=== PATIENT | female | born 1970 | race Caucasian/White ===

== ENCOUNTER 2025-07-06 22:00 | Emergency (ER) | payer BC ==
--- OUTSIDE RECORDS SUMMARY | 2025-07-06 22:03 | XMS REPORT | Continuity of Care Document ---
Author Name Unknown Address [address] [place] [address] [facility] Address [address] [place] [address] Care Team Providers Care Resolution Specialist Name Role Phone GUILLERMO CATALAN Primary Care Physician Unavailab DARLENE Thomas Attending Clinician Unavailable Darlene Diana NP Attending Clinician [phone] Doctor Unassigned, [place] Attending Clinician U ELSA Hackett Attending Clinician UnavailElsa Melendrez DO Attending Clinician [phone] Prerna Greene Attending Clinician [phone] PRERNA PADRON Attending Clinician Unavailable Shankar Hilton Attending Clinician [phone] Roland Saunders MD Attending Clinician [phone] ELSA ROCA Admitting Clinician Unavailab pabon Payers Payer Name Policy Type Policy Number Effective Date Expirati on Date Source [facility] [id number] 2017 00:00:00 Problems Condition Name Condition Details Condition Category Status Onset Date Resolution Date Last Treatment Date Treating Clinician Comments Source Vomiting and diarrhea Vomiting and diarrhea Disease Active 04-09 00:00: 00 [facility] GERD (gastroeso phageal reflux disease) GERD (gastroeso phageal reflux disease) Disease Active 06-05 00:00: 00 [facility] Hypothyroi dism Hypothyroi dism Disease Active 06-05 00:00: 00 [facility] Allergies, Adverse Reactions, Alerts Allergy Name Allergy Type Status Severity Reaction(s) Onset Date Inactive Date Treating Clinician Comments Source Codeine Propensi ty to adverse reaction s Active Nausea and/or Vomiting 06-05 00:00: 00 [facility] CODEINE DRUG INGREDI Active N/V 06-05 00:00: 00 [facility] Social History Social Habit Start Date Stop Date Quantity Comments Source Exposure to SARS-CoV-2 (event) 2022-01-25 00:00:00 2022-02-04 12:50:00 Not sure [facility] Alcohol intake 2021-11-15 00:00:00 2021-11-15 00:00:00 Current non-drinker of alcohol (finding) [facility] Tobacco use and exposure 2021-04-10 00:00:00 2021-04-10 00:00:00 Never used [facility] Sex Assigned At 1970 00:00:00 1970 00:00:00 [facility] Smoking Status Start Date Stop Date Source Never smoker [facility] Medications Ordered Medication Name Filled Medication Name Start Date Stop Date Current Medication? Ordering Clinician Indication Dosage Frequency Signature (SIG) Comments Components Source FENTanyl PF (SUBLIMAZE (PF)) injection 50 mcg 11-15 20:30: 00 11-15 19:26 :00 No 50ug 50 mcg, Intramuscu lar, ONCE, 1 dose, On Sun11/15/21 at 1430, Routine [facility] cephALEXin (KEFLEX) 500 mg capsule 2020-10-16 00:00: 00 08-27 05:59 :00 No [id number] 500mg Take 1 capsule by mouth 4 (four) times daily for 10 days. [facility] amoxicillin -clavulanat e (AUGMENTIN) 875-125 mg per tablet 1 tablet 04-11 13:00: 00 Yes 1{tbl} 1 tablet, Oral, Q12H, First dose on 04/11/21 at 0800, Until Discontinu ed, Routine
Reason for Anti-Infec tive: Documented Infection< br>Documen ambrose Infection Site: HEENT
D uration of Therapy: 7 days [facility] amoxicillin -clavulanat e (AUGMENTIN) 875-125 mg per tablet 1 tablet 04-11 00:45: 00 04-11 00:05 :00 No 1{tbl} 1 tablet, Oral, ONCE, 1 dose, 04/10/21 at 1945, Routine
Reason for Anti-Infec tive: Documented Infection< br>Documen ambrose Infection Site: HEENT
D uration of Therapy: 7 days [facility] albuterol (VENTOLIN) inhaler 2 Puff 04-11 00:30: 00 04-11 00:05 :00 No 2{puff} 2 Puff, Inhalation , ONCE, 1 dose, 04/10/21 at 1930, ANJEL [facility] amoxicillin -clavulanat e 875-125 mg per tablet 04-10 00:00: 00 Yes [id number] 1{tbl} Take 1 tablet by mouth every 12 (twelve) hours. [facility] furosemide 20 mg tablet 2018-10 00:00: 00 Yes [id number] 20mg Take 1 tablet by mouth daily. [facility] erythromyci n 5 mg/gram (0.5 %) ophthalmic ointment 2018-10 00:00: 00 Yes [id number] .5[in_u s] Place 0.5 Inches in left eye 4 (four) times daily. Continue until you follow up with eye doctor. [facility] furosemide 20 mg tablet 05-15 00:00: 00 Yes [id number] 40mg Take 2 tablets by mouth every morning. [facility] clindamycin 300 mg capsule 05-15 00:00: 00 05-26 04:59 :00 No [id number] 300mg Take 1 capsule by mouth 4 (four) times daily for 10 days. [facility] diclofenac 75 mg EC tablet 04-14 00:00: 00 Yes [id number] 75mg Take 1 tablet by mouth 2 (two) times daily with meals. [facility] phenazopyri dine 200 mg tablet 04-28 00:00: 00 Yes 200mg Take 1 tablet by mouth 3 (three) times daily. [facility] oxaprozin (DAYPRO) 600 mg tablet 05-22 00:00: 00 Yes [facility] omeprazole (PRILOSEC) 40 mg capsule 05-17 00:00: 00 Yes [facility] levothyroxi ne (SYNTHROID) 100 mcg tablet 03-19 00:00: 00 Yes [facility] Vital Signs Vital Name Observation Time Observation Value Comments S ource Systolic blood pressure 2022-02-04 17:52:00 148 mm[Hg] [facility] Diastolic blood pressure 2022-02-04 17:52:00 97 mm[Hg] [facility] Heart rate 2022-02-04 17:52:00 78 /min [facility] Body temperature 2022-02-04 17:52:00 35.78 Daysi [facility] Respiratory rate 2022-02-04 17:52:00 14 /min [facility] Body height 2022-02-04 17:52:00 160 cm [facility] Body weight 2022-02-04 17:52:00 122.471 kg [facility] BMI 2022-02-04 17:52:00 47.83 kg/m2 [facility] Oxygen saturation in Arterial blood by Pulse oximetry 2022-02-04 17:52:00 98 /min [facility] Systolic blood pressure 2021-11-15 21:00:00 130 mm[Hg] [facility] Diastolic blood pressure 2021-11-15 21:00:00 85 mm[Hg] [facility] Heart rate 2021-11-15 21:00:00 83 /min [facility] Body temperature 2021-11-15 21:00:00 36.28 Daysi [facility] Respiratory rate 2021-11-15 21:00:00 18 /min [facility] Oxygen saturation in Arterial blood by Pulse oximetry 2021-11-15 21:00:00 94 /min [facility] Body height 2021-11-15 19:12:06 160 cm [facility] Body weight 2021-11-15 19:12:06 122.471 kg [facility] BMI 2021-11-15 19:12:06 47.83 kg/m2 [facility] Systolic blood pressure 2021-08-17 00:27:00 149 mm[Hg] [facility] Diastolic blood pressure 2021-08-17 00:27:00 102 mm[Hg] [facility] Heart rate 2021-08-17 00:27:00 77 /min Un[facility] Body temperature 2021-08-17 00:27:00 36.67 Daysi [facility] Respiratory rate 2021-08-17 00:27:00 18 /min [facility] Body weight 2021-08-17 00:27:00 122.471 kg [facility] BMI 2021-08-17 00:27:00 47.83 kg/m2 [facility] Oxygen saturation in Arterial blood by Pulse oximetry 2021-08-17 00:27:00 98 /min [facility] Systolic blood pressure 2021-04-10 21:24:00 166 mm[Hg] [facility] Diastolic blood pressure 2021-04-10 21:24:00 88 mm[Hg] [facility] Heart rate 2021-04-10 21:24:00 85 /min Unive [facility] Body temperature 2021-04-10 21:24:00 37.17 Dayis [facility] Respiratory rate 2021-04-10 21:24:00 18 /min [facility] Body height 2021-04-10 21:24:00 160 cm [facility] Body weight 2021-04-10 21:24:00 123.378 kg [facility] BMI 2021-04-10 21:24:00 48.18 kg/m2 [facility] Oxygen saturation in Arterial blood by Pulse oximetry 2021-04-10 21:24:00 100 /min [facility] Systolic blood pressure 2019-05-15 18:22:00 139 mm[Hg] [facility] Diastolic blood pressure 2019-05-15 18:22:00 80 mm[Hg] [facility] Heart rate 2019-05-15 18:22:00 93 /min Unive [facility] Body temperature 2019-05-15 18:22:00 36.94 Daysi [facility] Respiratory rate 2019-05-15 18:22:00 16 /min [facility] Body height 2019-05-15 18:22:00 177.8 cm [facility] Body weight 2019-05-15 18:22:00 117.935 kg [facility] BMI 2019-05-15 18:22:00 37.31 kg/m2 [facility] Oxygen saturation in Arterial blood by Pulse oximetry 2019-05-15 18:22:00 97 /min [facility] Systolic blood pressure 2019-05-15 18:22:00 139 mm[Hg] [facility] Diastolic blood pressure 2019-05-15 18:22:00 80 mm[Hg] [facility] Heart rate 2019-05-15 18:22:00 93 /min [facility] Body temperature 2019-05-15 18:22:00 36.94 Daysi [facility] Respiratory rate 2019-05-15 18:22:00 16 /min [facility] Body height 2019-05-15 18:22:00 177.8 cm [facility] Body weight 2019-05-15 18:22:00 117.935 kg [facility] BMI 2019-05-15 18:22:00 37.31 kg/m2 [facility] Oxygen saturation in Arterial blood by Pulse oximetry 2019-05-15 18:22:00 97 /min [facility] Procedures Procedure Date / Time Performed Performing Clinician Source NOTICE OF PRIVACY PRACTICES 2022-02-04 17:53:42 Doctor Unassigned, [place] [facility] CONSENT/REFUSAL FOR DIAGNOSIS AND TREATMENT 2022-02-04 17:46:55 Doctor Unassigned, [place] [facility] AUTHORIZATION FOR RELEASE OF PHI 2021-11-23 06:01:00 Doctor Unassigned, [place] [facility] XR LUMBAR SPINE 3 2021-11-15 19:46:28 Keith Roca [facility] CT TRAUMA HEAD WO CONTRAST 2021-11-15 19:41:50 Elsa Roca [facility] CT TRAUMA CERVICAL SPINE WO CONTRAST 2021-11-15 19:41:50 Elsa Roca [facility] CONSENT/REFUSAL FOR DIAGNOSIS AND TREATMENT 2021-11-15 18:58:16 Doctor Unassigned, [place] [facility] CONSENT/REFUSAL FOR DIAGNOSIS AND TREATMENT 2021-08-17 00:08:46 Doctor Unassigned, [place] [facility] XR CHEST 1 2021-04-10 23:47:23 Shankar Lawler [facility] NOTICE OF PRIVACY PRACTICES 2021-04-10 21:11:13 Doctor Unassigned, [place] [facility] CONSENT/REFUSAL FOR DIAGNOSIS AND TREATMENT 2021-04-10 21:11:03 Doctor Unassigned, [place] [facility] NOTICE OF PRIVACY PRACTICES 2019-05-15 18:18:05 Doctor Unassigned, [place] [facility] CONSENT/REFUSAL FOR DIAGNOSIS AND TREATMENT 2019-05-15 18:17:30 Doctor Unassigned, [place] [facility] Encounters Start Date/Time End Date/Time Encounter Type Admission Type Attending [facility] Care Facility Care Department Encounter ID Source 2021-08-01 07:20:47 Emergency [facility] [id number] [facility] 2022-02-04 12:53:00 2022-02-04 14:33:00 Emergency X DARLENE DAINA [facility] ERT [id number] [facility] 2022-02-04 12:53:00 2022-02-04 14:33:00 Emergency Darlene Diana [facility] 1.2.840.114 350.1.13.10 [id number] [id number] [facility] 2021-11-23 00:00:00 2021-11-23 00:00:00 Orders Only Doctor Unassigned, [place] [facility] 1.2.840.114 350.1.13.10 4.2.7.2.686 [id number] [facility] 2021-11-15 13:17:00 2021-11-15 15:15:00 Emergency X ELSA ROCA [facility] ERT [id number] [facility] 2021-11-15 13:17:00 2021-11-15 15:15:00 Emergency Elsa Roca [facility] 1.2.840.114 350.1.13.10 4.2.7.2.686 [id number] [facility] 2021-08-16 18:30:00 2021-08-16 19:38:00 Emergency Prerna Padron [facility] 1.2.840.114 350.1.13.10 4.2.7.2.686 [id number] [facility] 2021-08-16 18:30:00 2021-08-16 19:38:00 Emergency X PADRON, PRERNA [facility] ERT [id number] [facility] 2021-04-10 16:25:00 2021-04-10 20:19:00 Emergency Shankar Lawler [facility] 1.2.840.114 350.1.13.10 4.2.7.2.686 [id number] [facility] 2021-04-10 00:00:00 2021-04-10 00:00:00 Orders Only Doctor Unassigned, [place] [facility] 1.2.840.114 350.1.13.10 4.2.7.2.686 [id number] [facility] 2019-05-15 13:25:51 2019-05-15 14:06:00 Emergency [place] 1.2.840.114 350.1.13.10 4.2.7.2.686 [id number] 2019-05-15 13:25:51 2019-05-15 14:06:00 Emergency Chip [facility] 1.2.840.114 350.1.13.10 4.2.7.2.686 [id number] [facility] 2019-05-15 00:00:00 2019-05-15 00:00:00 Orders Only Doctor Unassigned, [place] [facility] 1.2.840.114 350.1.13.10 4.2.7.2.686 [id number] 2019-05-15 00:00:00 2019-05-15 00:00:00 Orders Only Doctor Unassigned, [place] [facility] 1.2.840.114 350.1.13.10 4.2.7.2.686 [id number] [facility]
[2025-07-06] MEDS ORDERED: ONDANSETRON 4 MG/2 ML VIAL ONE (22:37)
[2025-07-06] MEDS ORDERED: MORPHINE 4 MG/ML SYR ONE (22:37)
[2025-07-07 00:26] LABS: Absolute Lymphocytes (CBC) 2.5 K/uL (0.7-4.9); Hematocrit 42.4 % (36.0-45.0); Hemoglobin 14.0 g/dL (12.0-15.0); MCH 27.4 pg (27.0-35.0); MCHC 33.0 g/dL (32.0-36.0); MCV 82.9 fL (80-100); MPV 8.5 fL (7.6-11.3); Nucleated RBC Absolute Count 0.0 (0-0); Nucleated Red Blood Cells % 0.1 % (0-0); PT Prothrombin Time 12.8 SECONDS (10-13.0); Protime INR 1.14; RBC Red Blood Cell Count 5.11 M/uL (3.86-4.86); White Blood Count 13.30 thou/uL (4.3-10.9)
[2025-07-07 00:42] LABS: ALT/SGPT 28 U/L (13-56); AST/SGOT 17 U/L (15-37); Albumin 3.4 g/dL (3.4-5.0); Albumin/Globulin Ratio 0.8 (1.1-1.8); Alkaline Phosphatase 129 U/L (45-117); Anion Gap 6.5 mEq/L (5.0-15.0); BUN Blood Urea Nitrogen 8 mg/dL (7-18); Globulin 4.4 g/dL (2.3-3.5); Glucose Level 79 mg/dL (74-106); Magnesium 2.3 mg/dL (1.6-2.4); NT PRO-BNP 331 pg/mL (<125); Potassium 3.5 mEq/L (3.5-5.1)
[2025-07-07 00:45] LABS: Bilirubin Indirect, Calculated 0.2 mg/dL (0.2-0.8); Troponin High Sensitivity < 3.0 pg/mL (<58.9)
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
[2025-07-07 01:26] VITALS: TEMP 97.9
[2025-07-07 01:28] VITALS: BP 128/87; O2SAT 99
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
== END 2025-07-07 01:14 | disposition home or self-care (01) ==
LOC: ER 22:00
DX: R07.9 Chest pain, unspecified (principal); V40.5XXA Car driver injured in collision with pedestrian or animal in traffic accident, initial encounter
CPT/HCPCS: 93005; 85025; 80048; 36415; 83735; 85610; 80076; 84484; 83880; 71045; 96375; 96374; 99284; J2405